=== PATIENT | male | born 1985 | race Two or more races ===

== ENCOUNTER 2018-07-23 01:44 | Emergency (ER) | payer SELFPAY ==
[~2018-07-23] VITALS: Ht 200.7 cm; Wt 88.8 kg
[2018-07-23 01:49] VITALS: BP 135/84
[2018-07-23] MEDS ORDERED: LIDOCAINE-MPF 1%, 5ML ONE (02:19)
[2018-07-23] MEDS ORDERED: SULFAMETH./TRIMETHOPRIM DS 800MG/160MG TABLET ONE (02:19)
[2018-07-23] MEDS ORDERED: ALUMINUM/MAG/SIMETHICONE 30 ML UDC ONE (02:19)
--- NOTE | 2018-07-23 02:24 | NUR ---
Pa at bedside for I&D.
[2018-07-23] MEDS ORDERED: ALUMINUM/MAG/SIMETHICONE 30 ML UDC PO PRN (02:30)
[2018-07-23] MEDS ORDERED: SULFAMETH./TRIMETHOPRIM DS 800MG/160MG TABLET PO ONE (02:30)
[2018-07-23] MEDS ORDERED: LIDOCAINE 1%-EPI 1:100K, 20ML SQ ONE (02:30)
--- NOTE | 2018-07-23 02:58 | NUR ---
Pt had an episode of emesis during d/c. Md notified. To be medicated per may.
[2018-07-23] MEDS ORDERED: ONDANSETRON ODT 8 MG PO ONE (03:00)
[2018-07-23] MEDS ORDERED: ONDANSETRON ODT 8 MG ONE (03:00)
== END 2018-07-23 02:54 | disposition home or self-care (01) ==
LOC: EDBD 01:44 → ED 02:40
DX: L02.11 Cutaneous abscess of neck (principal)
CPT/HCPCS: 10060; 99284; Q0162